=== PATIENT | female | born 1970 | race Two or more races ===

== ENCOUNTER 2018-05-27 20:27 | Emergency (ER) | payer BC ==
[~2018-05-27] VITALS: Ht 175.3 cm; Wt 105.2 kg
[2018-05-27] MEDS ORDERED: BROMOCRIPTINE2.5 MG (20:54)
== END 2018-05-28 00:31 | disposition home or self-care (01) ==
LOC: ER 20:27
DX: N39.0 Urinary tract infection, site not specified (principal)